=== PATIENT | female | born 2000 | race Caucasian/White ===

== ENCOUNTER 2022-12-21 20:32 | Emergency (ER) | payer MEDICAID ==
[~2022-12-21] VITALS: Ht 167.6 cm; Wt 64.0 kg
[2022-12-21] MEDS ORDERED: LORAZEPAM 0.5MG TABLET PO ONE (21:00)
[2022-12-21] MEDS ORDERED: ASPIRIN 325MG TABLET PO ONE (21:00)
[2022-12-21 21:21] LABS: BASOPHILS % 0.8 % (0.0-2.0); EOSINOPHILS % 2.5 % (0.0-5.0); HEMATOCRIT. 38.5 % (36.0-48.0); HEMOGLOBIN. 13.1 g/dL (12.0-16.0); LYMPHOCYTES % 21.5 % (20.0-50.0); MEAN CORPUSCULAR HEMOGLOBIN 27.4 pg (28.0-32.0); MEAN CORPUSCULAR VOLUME 80.4 fL (81.0-99.0); MEAN PLATELET VOLUME 8.7 fl (7.4-10.4); MONOCYTES % 7.5 % (2.0-8.0); NEUTROPHILS % 67.7 % (40.0-76.0); PLATELET 320 x1000/uL (130-400); RED BLOOD CELL COUNT 4.78 mill/uL (4.2-5.4); RED CELL DISTRIBUTION WIDTH 13.7 % (11.6-14.6)
[2022-12-21 21:28] LABS: CHLORIDE 110 mEq/L (98-107)
[2022-12-21 21:38] LABS: HCG SCREEN NEGATIVE
[2022-12-21 21:51] LABS: PROTHROMBIN TIME 10.5 sec (9.6-11.0)
[2022-12-21] MEDS ORDERED: SODIUM CHLORIDE 0.9% 1,000 ML IV ONE (23:00)
[2022-12-21] MEDS ORDERED: KETOROLAC 15MG/ML VIAL IV ONE (23:00)
[2022-12-22] MEDS ORDERED: IBUP-2028 MT (00:29)
[2022-12-22 00:46] VITALS: BP 98/66
[2022-12-22] MEDS ORDERED: IOHEXOL-350 100 ML BOTTLE ONE (01:15)
== END 2022-12-22 00:55 | disposition home or self-care (01) ==
LOC: ER 20:32
DX: R07.89 Other chest pain (principal); R06.02 Shortness of breath; R05.9 Cough, unspecified
CPT/HCPCS: 36415; 71045; 71275; 80053; 84484; 84703; 85025; 85379; 85610; 93005; 96361; 96374; 99285; J1885; J7030; Q9967; Z7610

== ENCOUNTER 2024-11-13 18:23 | Emergency (ER) | payer MEDICAID ==
[~2024-11-13] VITALS: Ht 162.6 cm; Wt 54.0 kg
[~2024-11-13 18:23] MED LIST: IBUP-2028 MT
[2024-11-13 18:29] VITALS: O2SAT 98
[2024-11-13 18:33] VITALS: TEMP 36.7; O2SAT 99
[2024-11-13] MEDS: ONDANSETRON HCL 4MG/2ML INJ IV STA ×2 (19:28→21:00)
[2024-11-13] MEDS: SODIUM CHLORIDE 0.9% 1,000 ML IV ONE ×2 (19:28→21:00)
[2024-11-13 19:46] LABS: HEMATOCRIT. 38.1 % (36.0-48.0); HEMOGLOBIN. 12.7 g/dL (12.0-16.0); MEAN CORPUSCULAR HEMOGLOBIN 27.7 pg (28.0-32.0); MEAN CORPUSCULAR HGB CONC 33.4 g/dL (31.0-37.0); MEAN CORPUSCULAR VOLUME 82.7 fL (81.0-99.0); MEAN PLATELET VOLUME 8.8 fl (7.4-10.4); PLATELET 238 x1000/uL (130-400); RED BLOOD CELL COUNT 4.61 mill/uL (4.2-5.4); RED CELL DISTRIBUTION WIDTH 13.1 % (11.6-14.6); WHITE BLOOD COUNT 8.3 x1000/uL (4.5-11.0)
[2024-11-13 19:56] LABS: CHLORIDE 102 mEq/L (98-107); DIFFERENTIAL COMMENT 1; POTASSIUM 3.3 mEq/L (3.5-5.1); SODIUM 136 mEq/L (136-145)
[2024-11-13 19:57] LABS: CARBON DIOXIDE 26 mEq/L (21-32)
[2024-11-13 20:02] LABS: CREATININE 0.7 mg/dL (0.6-1.0); GLUCOSE 125 mg/dL (70-105); UREA NITROGEN BLOOD 9 mg/dL (9-23)
[2024-11-13 20:03] LABS: ETHANOL BLOOD < 10 mg/dL (<10)
[2024-11-13 20:10] LABS: HCG SCREEN NEGATIVE
[2024-11-13 20:19] LABS: PLATELET ESTIMATE NORMAL
[2024-11-13] MEDS: POTASSIUM CHLORIDE 20MEQ/PACKET PO ONE (21:00)
[2024-11-13 21:01] VITALS: BP 125/76; PULSE 143; RESP 16
[2024-11-13] MEDS: MORPHINE SULFATE 4 MG/ML INJ (FOR IV/IM USE) IV STA (21:01)
[2024-11-13] MEDS ORDERED: ONDA4TAB50 MT (22:36)
[2024-11-13] MEDS ORDERED: T3 PO (22:36)
[2024-11-13] MEDS ORDERED: IOHEXOL-300 100 ML BOTTLE ONE (23:00)
== END 2024-11-13 22:58 | disposition home or self-care (01) ==
LOC: ER 18:23
DX: R10.33 Periumbilical pain (principal); R11.2 Nausea with vomiting, unspecified; E87.6 Hypokalemia; Z79.899 Other long term (current) drug therapy
CPT/HCPCS: 80048; 80320; 84703; 83690; 85025; 36415; 74177; 96361; 96374; 96375; 96376; 99285; Q9967; J2405; J2270; J7030; G0480